=== PATIENT | male | born 1960 | race Caucasian/White ===

== ENCOUNTER 2018-07-28 07:20 | Emergency (ER) | payer OTHER, BC ==
[~2018-07-28] VITALS: Ht 188 cm; Wt 129.3 kg
[~2018-07-28 07:20] MED LIST: IBUPROFEN600 MG PO; LISINOPRIL-HCT1 EAC1 PO; NORCO 5-325 TA1 EACH PO; PREDNISONE20 MG PO; SIMVASTATIN20 MG PO
== END 2018-07-28 08:43 | disposition home or self-care (01) ==
LOC: ED 07:20
DX: S86.022A Laceration of left Achilles tendon, initial encounter (principal); S61.412A Laceration without foreign body of left hand, initial encounter; S43.402A Unspecified sprain of left shoulder joint, initial encounter; S63.502A Unspecified sprain of left wrist, initial encounter; I10 Essential (primary) hypertension; Z87.891 Personal history of nicotine dependence; Z88.5 Allergy status to narcotic agent; Z79.899 Other long term (current) drug therapy; W00.0XXA Fall on same level due to ice and snow, initial encounter; Y92.239 Unspecified place in hospital as the place of occurrence of the external cause; Y99.0 Civilian activity done for income or pay
CPT/HCPCS: 73030; 73110; 99283

== ENCOUNTER 2019-04-24 14:08 | Emergency (ER) | payer OTHER, BC ==
[~2019-04-24] VITALS: Ht 188 cm; Wt 131.5 kg
--- OUTSIDE RECORDS SUMMARY | ~2019-04-24 | XMS | Clinical Summary ---
Demographics + + + | Address | [address] | | | [place] [address] | + + + | Home Phone | | + + + | Preferred Language | Unknown | + + + | Marital Status | Unknown | + + + | Tenriism Affiliation | Unknown | + + + | Race | Unknown | + + + | Ethnic Group | Unknown | + + + Author + + + | Author | [facility] (Historical as of | | | 01-27-19) | + + + | Organization | [facility] (Historical as of | | | 01-27-19) | + + + | Address | Unknown | + + + | Phone | Unavailable | + + + Support + + +---------+ + | Name | Relationship | Address | Phone | + + +---------+ + | Contact,No | ECON | Unknown | | + + +---------+ + Care Team Providers + +------+ + | Care Life Advisor Name | Role | Phone | + +------+ + | Ra Hyatt MD | PP | | + +------+ + Allergies Not on File Current Medications Not on file Active Problems Not on file Social History + +-------+ +--------+------+ | Tobacco Use | Types | Packs/Day | Years | Date | | | | | Used | | + +-------+ +--------+------+ | Never Assessed | | | | | + +-------+ +--------+------+ + + + | Sex Assigned at | Date Recorded | | | | + + + | Not on file | | + + + Plan of Treatment + + + + + | Health Maintenance | Due Date | Last Done | Comments | + + + + + | Vaccine: | | | | | Dtap/Tdap/Td (1 - | 8 | | | | Tdap) | | | | + + + + + | Vaccine: Zoster (1 | | | | | of 2) | 9 | | | + + + + + | Vaccine: Influenza | | | | | (#1) | 9 | | | + + + + + Results Not on filefrom Last 3 Months Insurance + +--------+ +------+-------+---------+ | Payer | Benefi | Subscriber | Type | Phone | Address | | | t Plan | ID | | | | | | / | | | | | | | Group | | | | | + +--------+ +------+-------+---------+ | L&I - ELIJAH | L&I - | [id number] | | | | | | SEDGWI | 0001 | | | | | | CK | | | | | | | CLAIMS | | | | | | | MNG | | | | | | | SER | | | | | + +--------+ +------+-------+---------+ + +--------+ +--------+ + + | Guarantor Name | Accoun | Relation to | Date | Phone | Billing Address | | | t Type | Patient | of | | | | | | | | | | + +--------+ +--------+ + + | NANCY PERRY | Worker | Self [birth year] Home: | [address] | | | [place] | | [phone] | [phone] [place], [place] | | | | | | [phone] | + +--------+ +--------+ + +"
--- OUTSIDE RECORDS SUMMARY | ~2019-04-24 | XMS | Clinical Summary ---
Demographics + + + | Address | [address] | | | [place] [address] | + + + | Home Phone | | + + + | Preferred Language | Unknown | + + + | Marital Status | Unknown | + + + | Christianity Affiliation | Unknown | + + + | Race | Unknown | + + + | Ethnic Group | Unknown | + + + Author + + + | Author | [facility] (Historical as of | | | 01-27-19) | + + + | Organization | [facility] (Historical as of | | | 01-27-19) [...] Team Providers + +------+ + | Care Drafter Civil Name | Role | Phone | + [...] L&I - ELIJAH | L&I - | [id number] | | | | | | SEDGWI [...] | | | | | [phone] | [phone] | + +--------+ +--------+ + +"
[2019-04-24] MEDS ORDERED: GABAPENTIN300 MG PO (14:18)
[2019-04-24] MEDS ORDERED: GLUCOPHAGE500 MG PO (14:18)
== END 2019-04-24 15:59 | disposition home or self-care (01) ==
LOC: ED 14:08
DX: S63.602A Unspecified sprain of left thumb, initial encounter (principal); W22.8XXA Striking against or struck by other objects, initial encounter; I10 Essential (primary) hypertension; E11.9 Type 2 diabetes mellitus without complications; Z87.891 Personal history of nicotine dependence; Z88.5 Allergy status to narcotic agent; Z79.899 Other long term (current) drug therapy; Z79.84 Long term (current) use of oral hypoglycemic drugs
CPT/HCPCS: 73140; 99283-25

== ENCOUNTER 2020-07-03 07:47 | Emergency (ER) | payer BC ==
[~2020-07-03] VITALS: Ht 188 cm; Wt 136.1 kg
[~2020-07-03 07:47] MED LIST changes: +ADDAPRIN200 MG PO; +GABAPENTIN300 MG PO; +GLUCOPHAGE500 MG PO
[2020-07-03] MEDS ORDERED: CYCLOBENZAPRINE10 MG PO (08:45)
[2020-07-03] MEDS ORDERED: SIMVASTATIN40 MG PO (08:45)
--- NOTE | 2020-07-03 13:04 | EKG ---
[facility] [address] [place] [address] Signed Normal sinus rhythm Left axis deviation Abnormal ECG No previous ECGs available Confirmed by MARGARITO BEASLEY MD ([id number]) on 07/03/2020 1:04:00 PM Electronically Signed By: MARGARITO BEASLEY MD 07/03/20 1304 PATIENT NAME: NANCY PERRY Electrocardiogram DATE OF : 58 PHYSICIAN: MARGARITO BEASLEY MD REPORT #: [id number] REPORT IS CONFIDENTIAL AND NOT TO BE RELEASED WITHOUT AUTHORIZATION
== END 2020-07-03 11:14 | disposition home or self-care (01) ==
LOC: ED 07:47
DX: R13.10 Dysphagia, unspecified (principal); I10 Essential (primary) hypertension; E11.9 Type 2 diabetes mellitus without complications; Z87.891 Personal history of nicotine dependence; Z88.5 Allergy status to narcotic agent; Z79.899 Other long term (current) drug therapy; Z79.84 Long term (current) use of oral hypoglycemic drugs
CPT/HCPCS: 93005; 93010; 99285-25